=== PATIENT | female | born 1975 | race American Indian/Alaskan Native ===

== ENCOUNTER 2017-07-09 17:26 | Emergency (ER) | payer MEDICAID | END 2017-07-09 19:30 | disposition left against medical advice (07) | LOC: ED 17:26 | DX: H92.09 Otalgia, unspecified ear (principal); Z53.21 Procedure and treatment not carried out due to patient leaving prior to being seen by health care provider ==

== ENCOUNTER 2020-01-03 09:03 | Day surgery (SDC) | payer MEDICAID ==
[~2020-01-03 09:03] MED LIST: SODIUM CHLORIDE 0.9% 1000 ML 1,000 ML IV SCH
--- NOTE | 2020-01-03 09:55 | Anesthesia Consultation ---
Anesthesia Consult and Med Hx Date of service: 01/03/20 - Airway Anesthetic Teeth Evaluation: Good ROM Head & Neck: Adequate Mental/Hyoid Distance: Adequate Mallampati Class: Class II Intubation Access Assessment: Probably Good - Pre-Operative Health Status ASA Pre-Surgery Classification: ASA2 Proposed Anesthetic Plan: MAC - Central Nervous System Hx Back Pain: Yes Hx Psychiatric Problems: Yes (depression) - Gastrointestinal Hx Gastroesophageal Reflux Disease: Yes (indigestion ) - Other Systems Hx Obesity: Yes (BMI 39.0)
--- NOTE | 2020-01-03 09:55 | Anesthesia Day of Surgery ---
Anesthesia Day of Surgery - Day of Surgery Patient Examined: Yes Patient H&P Reviewed: Yes Patient is NPO: Yes
[2020-01-03] MEDS ORDERED: LIDOCAINE MPF (2%) 20 MG/1 ML VIAL 5 ML ONE (11:41)
[2020-01-03] MEDS ORDERED: WATER FOR IRRIG STERILE 1,000 ML BOTTLE ONE (11:41)
[2020-01-03] MEDS ORDERED: WATER FOR IRRIG STERILE 250 ML BOTTLE IR ONE (11:42)
[2020-01-03] MEDS ORDERED: propofoL 200 MG/20 ML VIAL IV ONE (11:42)
--- NOTE | 2020-01-03 12:34 | Operative Report ---
Operative Report Operative Report: DATE: 01/03/2020 Esophagogastroduodenoscopy with multiple mucosal biopsies. ATTENDING PHYSICIAN: Zaheer Mar M.D. BRAND ACTIVATION MANAGER: Zaheer Mar M.D. INDICATION: Patient is a 46-year-old female who presents with history of recurrent epigastric pain with chest pain, indigestion, heartburn . An upper endoscopy is done to assess patient so that treatment may be directed based on the findings. CONSENT: Informed consent was obtained after the patient was advised regarding the nature of this procedure, its indications, potential benefits as well as possible complications including but not limited to bleeding, perforation, adverse reaction to medications, infection as well as cardiopulmonary complications. An informed written and verbal consent was then obtained after due opportunity was provided for questions and answers. MONITORING: Patient monitored continuously with pulse oximetry, electrocardiographic recordings as well as automatic blood pressure recordings. Patient remained stable throughout the procedure with no untoward events. PREOPERATIVE ASSESSMENT: Patient was assessed immediately prior to this procedure for capacity to tolerate moderate sedation/monitored anesthesia care. [place] [employer] classification is 2. Mallampatti class is 2. Hyomental distance is 3. INSTRUMENT: Olympus video endoscope GIF Q160. MEDICATIONS: Propofol given intravenously in divided doses. For details, please refer to anesthesia records. DESCRIPTION OF PROCEDURE: Patient was placed in the left lateral decubitus position, after achieving sedation, the endoscope was introduced into the esophagus and advanced under direct visualization into the stomach and then to the second portion of the duodenum. Color texture mucosa and anatomy of the upper gastrointestinal tract was carefully examined with the endoscope which was then gently withdrawn with careful inspection of all mucosa surfaces. The patient tolerated the procedure well with no complications. After completion of the examination, patient was transferred to the recovery room. The preparation was fair. The following findings were noted. FINDINGS: The Z line was irregular at 37 cm. There was erythema and edema seen in the gastric antrum. Biopsies of the antrum were obtained for histopathology. The duodenum was normal to the second portion. IMPRESSION: Irregular Z line. Gastric antral erythema Gastric antral erosions. PLAN: Continue treatment with proton pump inhibitors Follow pathology report and direct additional treatment based on the pathology report.
--- NOTE | 2020-01-03 12:42 | Discharge Summary ---
Short Stay Discharge Plan Activity: advance as tolerated Weight Bearing Status: Weight Bear as Tolerated Diet: regular Additional Instructions: Avoid Aspirin NSAIDS D/C Instructions Avoid the following for the time period specified by your physician: 3 days - Asprin(Mare, Bufferin, Excedrin, Goody's or BC Powders) -Ibuprofen (Advil or Motrin) -Naproxen (Aleve or Naprosyn) -Indomethacin, Sulindac, Etodolac, Diclofenac -Meloxicam, Piroxicam, Tenoxicam, Droxicam, Lornoxicam, Isoxicam - Mefenamic acid, Meclofenamic acid, Flufenamic acid, Tolfenamic acid -Celecoxib (Celebrex) Follow up with: HARJIT KU MD [Primary Care Provider] - 7 Days
[2020-01-03 12:51] VITALS: BP 129/84
== END 2020-01-03 12:45 | disposition home or self-care (01) ==
LOC: GIO 09:03
PROVIDERS: ATTEND Internal Medicine Gastroenterology
DX: R10.13 Epigastric pain (principal); K29.50 Unspecified chronic gastritis without bleeding; R07.89 Other chest pain; R14.1 Gas pain; K21.9 Gastro-esophageal reflux disease without esophagitis; E66.9 Obesity, unspecified; F32.9 Major depressive disorder, single episode, unspecified; Z98.890 Other specified postprocedural states; Z79.899 Other long term (current) drug therapy
CPT/HCPCS: 43239; 81025; 88305; 88342; J2704; J7030

== ENCOUNTER 2020-12-25 14:01 | Emergency (ER) | payer MEDICAID ==
[2020-12-25 14:25] VITALS: BP 127/85
[2020-12-25] MEDS ORDERED: predniSONE 20 MG TAB PO ONE (15:14)
[2020-12-25] MEDS ORDERED: ACETAMINOPHEN 325 MG TAB PO ONE (15:14)
--- NOTE | 2020-12-25 15:28 | Emergency Department Report ---
ED ENT HPI - General Chief complaint: Earache Stated complaint: POSSIBLE DISLOCATED JAW Time Seen by Provider: 12/25/20 14:41 Source: patient Mode of arrival: Ambulatory Limitations: No Limitations - History of Present Illness Initial comments: This is a 45-year-old female presents the ED complaining of left-sided jaw/ear pain x1 week. Patient states that patient's symptoms initially started about 2 weeks ago. Patient states she went to see her primary care physician who gave her some medicine which did not give her relief. Patient states at that time she had drainage to the ears and thought it was the ear or sinus infection. Patient denies any injury to the jaw. Patient denies any dental pain. Patient states pain starts in her left ear radiating down her jaw. She denies fever/chills/nausea vomiting abdominal pain, loss of sensation of the face. Location: L ear Severity: moderate Severity scale (0 -10): 7 - Related Data Home Medications Medication Instructions Recorded Confirmed Last Taken Prilosec 40 mg PO DAILY 01/03/20 01/03/20 12/26/19 Xanax TAB 0.5 mg PO PRN PRN 01/03/20 01/03/20 12/20/19 Previous Rx's Medication Instructions Recorded Last Taken Type Acetaminophen/Codeine [Tylenol 1 tab PO Q6H PRN #10 tab 12/25/20 Unknown Rx /Codeine # 3 tab] Amoxicillin/Potassium Clav 1 each PO BID #10 tablet 12/25/20 Unknown Rx [Augmentin 875-125 Tablet] predniSONE [Deltasone] 20 mg PO QDAY #5 tab 12/25/20 Unknown Rx Allergies Allergy/AdvReac Type Severity Reaction Status Date / Time No Known Allergies Allergy Verified 01/02/20 13:46 ED Dental HPI - General Chief complaint: Earache Stated complaint: POSSIBLE DISLOCATED JAW Time Seen by Provider: 12/25/20 14:41 Source: patient Mode of arrival: Ambulatory Limitations: No Limitations - Related Data Home Medications Medication Instructions Recorded Confirmed Last Taken Prilosec 40 mg PO DAILY 01/03/20 01/03/20 12/26/19 Xanax TAB 0.5 mg PO PRN PRN 01/03/20 01/03/20 12/20/19 Previous Rx's Medication Instructions Recorded Last Taken Type Acetaminophen/Codeine [Tylenol 1 tab PO Q6H PRN #10 tab 12/25/20 Unknown Rx /Codeine # 3 tab] Amoxicillin/Potassium Clav 1 each PO BID #10 tablet 12/25/20 Unknown Rx [Augmentin 875-125 Tablet] predniSONE [Deltasone] 20 mg PO QDAY #5 tab 12/25/20 Unknown Rx Allergies Allergy/AdvReac Type Severity Reaction Status Date / Time No Known Allergies Allergy Verified 01/02/20 13:46 ED Review of Systems ROS: Stated complaint: POSSIBLE DISLOCATED JAW Other details as noted in HPI Comment: All other systems reviewed and negative ED Past Medical Hx - Past Medical History Previous Medical History?: No - Surgical History Additional Surgical History: left foot - Social History Smoking Status: Former Smoker Substance Use Type: Alcohol - Medications Home Medications: Home Medications Medication Instructions Recorded Confirmed Last Taken Type Prilosec 40 mg PO DAILY 01/03/20 01/03/20 12/26/19 History Xanax TAB 0.5 mg PO PRN PRN 01/03/20 01/03/20 12/20/19 History Acetaminophen/Codeine [Tylenol 1 tab PO Q6H PRN #10 tab 12/25/20 Unknown Rx /Codeine # 3 tab] Amoxicillin/Potassium Clav 1 each PO BID #10 tablet 12/25/20 Unknown Rx [Augmentin 875-125 Tablet] predniSONE [Deltasone] 20 mg PO QDAY #5 tab 12/25/20 Unknown Rx ED Physical Exam - General Limitations: No Limitations General appearance: alert, in no apparent distress - Head Head exam: Present: atraumatic, normocephalic - Eye Eye exam: Present: normal appearance, PERRL Pupils: Present: normal accommodation - ENT ENT exam: Present: mucous membranes moist, other ( no clicking, no TMJ tenderness) - Expanded ENT Exam Expanded Ear exam: Present: normal external inspection. Absent: auricular hematoma, auricular trauma TM/Canal exam: Effusion: Left TM Mouth exam: Present: normal external inspection, tongue normal. Absent: drooling, trismus, tongue elevation Teeth exam: Present: normal inspection Throat exam: Positive: normal inspection. Negative: tonsillar erythema, tonsillomegaly, tonsillar exudate, R peritonsillar mass, L peritonsillar mass - Neck Neck exam: Present: normal inspection, full ROM, lymphadenopathy (Left anterior cervical). Absent: tenderness, meningismus - Respiratory Respiratory exam: Present: normal lung sounds bilaterally. Absent: respiratory distress - Cardiovascular Cardiovascular Exam: Present: regular rate, normal rhythm. Absent: systolic murmur, diastolic murmur, rubs, gallop - GI/Abdominal GI/Abdominal exam: Present: soft, normal bowel sounds - Extremities Exam Extremities exam: Present: normal inspection - Back Exam Back exam: Present: normal inspection - Neurological Exam Neurological exam: Present: alert, oriented X3 - Psychiatric Psychiatric exam: Present: normal affect, normal mood - Skin Skin exam: Present: warm, dry, intact, normal color. Absent: rash ED Course Vital Signs 12/25/20 12/25/20 14:19 15:20 Temperature 98.5 F Pulse Rate 87 Respiratory 18 18 Rate Blood Pressure 127/85 O2 Sat by Pulse 100 Oximetry ED Medical Decision Making - Medical Decision Making 45-year-old female presents with left-sided jaw pain. Patient received steroids and pain medication in the ED. Patient was in no acute distress, had patent airways. Plan is to have trial of antibiotics and steroids to help with inflammation. Discussed with patient to follow-up with primary care physician. Vital signs are normal she is in no acute distress. Discussed with patient if any new or worsening symptoms she may return to the ED immediately. - Differential Diagnosis Anne's palsy, TMJ, sinusitis, otitis media Critical care attestation.: If time is entered above; I have spent that time in minutes in the direct care of this critically ill patient, excluding procedure time. ED Disposition Clinical Impression: Jaw pain, non-TMJ, Sinusitis Disposition: DC- TO HOME OR SELFCARE Is pt being admited?: No Does the pt Need Aspirin: No Condition: Stable Instructions: Anne Palsy, Adult, Sinusitis, Adult, [id number], Temporomandibular Joint Syndrome Additional Instructions: Make sure to follow up with the primary care physician as discussed. Take all your medications as you've been prescribed. If you have any worsening symptoms or develop new symptoms please return to ED immediately. Prescriptions: Amoxicillin/Potassium Clav [Augmentin 875-125 Tablet] 1 each PO BID #10 tablet predniSONE [Deltasone] 20 mg PO QDAY #5 tab Acetaminophen/Codeine [Tylenol /Codeine # 3 tab] 1 tab PO Q6H PRN #10 tab PRN Reason: Pain , Severe (7-10) Referrals: [facility] [Provider Group] - 3-5 Days Forms: Work/School Release Form(ED) Time of Disposition: 16:29
== END 2020-12-25 17:28 | disposition home or self-care (01) ==
LOC: ED 14:01
DX: R68.84 Jaw pain (principal); J32.9 Chronic sinusitis, unspecified; Z98.890 Other specified postprocedural states; Z79.2 Long term (current) use of antibiotics; Z79.899 Other long term (current) drug therapy
CPT/HCPCS: 99282; J7512